=== PATIENT | female | born 1950 | race Caucasian/White ===

== ENCOUNTER 2021-01-19 14:41 | Emergency (ER) | payer OTHER ==
[~2021-01-19] VITALS: Ht 149.9 cm; Wt 63.0 kg
[2021-01-19] MEDS ORDERED: TRAMADOL 50MG TABLET PO ONE (18:15)
[2021-01-19] MEDS ORDERED: ONDANSETRON 4MG ODT PO ONE (18:15)
[2021-01-19] MEDS ORDERED: TRAM50TA MT (20:00)
[2021-01-19 20:05] VITALS: BP 145/72
== END 2021-01-19 20:20 | disposition home or self-care (01) ==
LOC: ER 14:41
DX: S59.801A Other specified injuries of right elbow, initial encounter (principal); S89.81XA Other specified injuries of right lower leg, initial encounter; M54.2 Cervicalgia; M54.6 Pain in thoracic spine; M54.5 Low back pain; M25.511 Pain in right shoulder; I10 Essential (primary) hypertension; E11.9 Type 2 diabetes mellitus without complications; W01.0XXA Fall on same level from slipping, tripping and stumbling without subsequent striking against object, initial encounter; Y93.9 Activity, unspecified; Y92.9 Unspecified place or not applicable
CPT/HCPCS: 70450; 72070; 72100; 72125; 73030; 73080; 73562; 99285; Q0162

== ENCOUNTER 2024-04-14 16:16 | Emergency (ER) | payer OTHER, MEDICAID ==
[~2024-04-14] VITALS: Ht 147.3 cm; Wt 58.0 kg
[~2024-04-14 16:16] MED LIST: AMLO5TAB88 PO; EZET10TA81 PO; INSU100I81 IM; INSU100V43 SQ; WARF4TAB71 PO
[2024-04-14 16:48] VITALS: O2SAT 99
[2024-04-14] MEDS ORDERED: AMOX1TAB16 MT (17:35)
[2024-04-14] MEDS: TETANUS, DIPHTHERIA, PERTUSSIS VAC/PF 0.5ML (>10YR OLD) IM ONE (18:00)
[2024-04-14 18:07] VITALS: BP 99/63; PULSE 80; RESP 18; TEMP 36.94740; O2SAT 99
== END 2024-04-14 18:09 | disposition home or self-care (01) ==
LOC: ER 16:16
DX: S51.852A Open bite of left forearm, initial encounter (principal); E11.9 Type 2 diabetes mellitus without complications; E78.00 Pure hypercholesterolemia, unspecified; I10 Essential (primary) hypertension; Z98.890 Other specified postprocedural states; X58.XXXA Exposure to other specified factors, initial encounter; Y93.89 Activity, other specified; Y92.89 Other specified places as the place of occurrence of the external cause; Y99.8 Other external cause status
CPT/HCPCS: 90471; 90715; 99283